=== PATIENT | male | born 1995 | race Caucasian/White ===

== ENCOUNTER 2021-08-22 00:03 | Inpatient (IN) | payer MEDICAID, SELFPAY ==
[2021-08-22 00:03] VITALS: BMI 25.9
[2021-08-22 00:35] VITALS: BP 143/89; PULSE 74; RESP 16; TEMP 36.7; O2SAT 98
[2021-08-22] MEDS: trazodone 50 mg Tablet PO ×2 (00:40→20:49)
[2021-08-22 06:00] VITALS: BP 101/61; PULSE 57; RESP 16; TEMP 36.3; O2SAT 99
--- NOTE | 2021-08-22 11:33 | NPU.GN ---
[facility] Topic: Roll The Dice General Mood of Group: Solomon did attend group. His hygiene was ok and he was social with others in group.
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
[2021-08-22 14:00] VITALS: BP 112/68; PULSE 67; RESP 20; TEMP 36.6; O2SAT 94
[2021-08-22] MEDS: quetiapine 100 mg Tablet PO ×2 (20:49→21:36)
[2021-08-22] MEDS: zonisamide 100 MG Capsule PO (20:49)
[2021-08-22 21:09] VITALS: BP 131/77; PULSE 66; RESP 20; TEMP 36.6; O2SAT 99
[2021-08-22] MEDS: zonisamide 100 MG Capsule 200 MG PO (21:46)
[2021-08-23 06:00] VITALS: BP 118/74; PULSE 70; RESP 18; TEMP 36; O2SAT 99
[2021-08-23] MEDS: OLANZapine 5 mg ODT PO ×2 (08:29→20:39)
[2021-08-23] MEDS: hyDROXYzine 25 mg Capsule 50 MG PO (08:29)
[2021-08-23] MEDS: fluoxetine 20 mg Capsule PO (08:30)
[2021-08-23] MEDS: risperiDONE 1 mg Tablet PO (08:30)
--- NOTE | 2021-08-23 11:40 | NPU.GN ---
[facility] Topic:Coping Mechanisms Activity General Mood of Group: Solomon did attend and participate in group today. Hygiene was ok and patient was pleasant and social with others in group.
--- NOTE | 2021-08-23 13:10 | P.NPUPN_ITS ---
Subjective NPU Subjective: He says that he is doing better. He is not having the flashbacks of seeing his friend killed in custodial. He did not have nightmares last night. He slept well with the Seroquel. He did not have a hangover this morning. He agrees with the plan to get him doing significantly better before he goes back to [facility]. If he is not successful with this program he will go to custodial for 7 years. Mental Status Exam MSE Comments: This is a 25-year old appropriate weight male who appears approximately his stated age and is in no acute distress. He is pleasant and cooperative with the evaluation. He is fairly well-groomed in hospital scrubs. psychomotor activity is normal, better than yesterday Speech is at a regular rate and rhythm, normal volume, good articulation, not pressured. Alert, oriented X3 Attention and concentration appear to be good Memory is intact Mood is depressed but better affect is mildly dysphoric Thought process is logical and goal-directed. Thought content: Denies auditory and visual hallucinations. No delusions or paranoia are noted. No current suicidal ideation, and no homicidal ideation. Fund of knowledge is appears to be average Insight and judgment appear to be fair. Impulse control is poor. Cognition: Patient Appearance: Appropriate Ability to Follow Directions: Good Patient Orientation (long list): Person, Name, Age and Birthday Comprehension Ability: No Impairment Hallucination Type: Auditory Delusion Description: Not Present Thought Process: Appropriate Affect: Affect Description: Anxious, Guarded and Labile Behavior: Patient Behavior: Cooperative and Evasive Speech Pattern: Appropriate and Clear Vitals/I&O/Wt Last Vital Signs Temp 96.8 F L 08/23/21 06:00 Pulse 70 08/23/21 06:00 Resp 18 08/23/21 06:00 BP 118/74 08/23/21 06:00 Pulse Ox 99 08/23/21 06:00 Weight last 48 hrs Weight 84.4 kg Weight 84.4 kg A&P Assessment and plan (1) Seizure disorder: Status: Acute (2) Polysubstance abuse: Status: Acute (3) Anxiety: Status: Acute (4) Depression: Status: Acute Plan This is a 25-year old male who has spent most of his time in juvenile and skilled nursing and present since he was 14 years old. Mostly for drug related offenses. He comes in now because of anxiety depression and suicidal ideation and a alcohol or drug treatment program ordered by the court. Plan: 1. Continue Zonegran for seizures. Start Prozac and Seroquel 2. Continue every 15 minute checks for safety. 3. Encourage individual, group and milieu therapies. 4. Encourage sober living treatment after discharge at the highest level of care to which he is willing to commit. 5. We will monitor for safety for himself in the community prior to discharge. Involuntary Hold Information 96 Hour Hold: 96 Hour Involuntary Admission: No Attestations NPU Medical Necessity Statement*: Inpatient hospitalization is medically necessary and the clinically appropriate intervention at this time. We will initiate medications and make changes as indicated. Coding Level of Care Code Acute Data Conversion Analyst for [facility] Diagnoses Seizure disorder G40.909 Polysubstance abuse F19.10 Anxiety F41.9 Depression F32.A
[2021-08-23 14:00] VITALS: BP 98/54; PULSE 55; RESP 17; TEMP 36.6; O2SAT 98
[2021-08-23] MEDS: zonisamide 100 MG Capsule 300 MG PO (20:39)
[2021-08-23] MEDS: quetiapine 100 mg Tablet PO (20:39)
[2021-08-23] MEDS: trazodone 50 mg Tablet PO (20:39)
[2021-08-23 21:09] VITALS: BP 128/82; PULSE 86; RESP 17; O2SAT 98
[2021-08-24 06:00] VITALS: BP 118/80; PULSE 87; RESP 18; TEMP 36.7; O2SAT 96
[2021-08-24] MEDS: risperiDONE 1 mg Tablet PO (09:57)
[2021-08-24] MEDS: fluoxetine 20 mg Capsule PO (09:57)
[2021-08-24] MEDS: nicotine 2 mg Gum BUCCAL (10:58)
--- NOTE | 2021-08-24 12:13 | W.PM.NPUPNS ---
Subjective NPU Subjective: Says that he is sleeping much better. He is not having nightmares. He also has not been having flashbacks of his friend being killed in [facility]. He said his anxiety during the day is still there but this seems to be decreasing. He feels like the medications are working well. He does not feel that he has had any side effects. Mental Status Exam MSE Comments: This is a 25-year old appropriate weight male who appears approximately his stated age and is in no acute distress. He is pleasant and cooperative with the evaluation. He is fairly well-groomed in hospital scrubs. psychomotor activity is normal, better than yesterday Speech is at a regular rate and rhythm, normal volume, good articulation, not pressured. Alert, oriented X3 Attention and concentration appear to be good Memory is intact Mood is depressed but better affect is mildly dysphoric Thought process is logical and goal-directed. Thought content: Denies auditory and visual hallucinations. No delusions or paranoia are noted. No current suicidal ideation, and no homicidal ideation. Fund of knowledge is appears to be average Insight and judgment appear to be fair. Impulse control is poor. Cognition: Patient Appearance: Appropriate Ability to Follow Directions: Good Patient Orientation (long list): Person, Name, Age and Birthday Comprehension Ability: No Impairment Hallucination Type: None Delusion Description: Not Present Thought Process: Appropriate Affect: Affect Description: Anxious, Lynn and Depressed Behavior: Patient Behavior: Appropriate Speech Pattern: Appropriate and Clear Vitals/I&O/Wt Last Vital Signs Temp 98.0 F 08/24/21 06:00 Pulse 87 08/24/21 06:00 Resp 18 08/24/21 06:00 BP 118/80 08/24/21 06:00 Pulse Ox 96 08/24/21 06:00 A&P Assessment and plan (1) Seizure disorder: Status: Acute (2) Polysubstance abuse: Status: Acute (3) Anxiety: Status: Acute (4) Depression: Status: Acute Plan This is a 25-year old male who has spent most of his time in juvenile and custodial and present since he was 14 years old. Mostly for drug related offenses. He comes in now because of anxiety depression and suicidal ideation and a alcohol or drug treatment program ordered by the court. Plan: 1. Continue Zonegran for seizures. Start Prozac and Seroquel. will increase Prozac gradually. 2. Continue every 15 minute checks for safety. 3. Encourage individual, group and milieu therapies. 4. Encourage sober living treatment after discharge at the highest level of care to which he is willing to commit. 5. We will monitor for safety for himself in the community prior to discharge. Involuntary Hold Information 96 Hour Hold: 96 Hour Involuntary Admission: No Attestations NPU Medical Necessity Statement*: Inpatient hospitalization is medically necessary and the clinically appropriate intervention at this time. We will initiate medications and make changes as indicated. Coding Level of Care Code Acute Residence Leasing Agent for [facility] Fwd Diagnoses Seizure disorder G40.909 Polysubstance abuse F19.10 Anxiety F41.9 Depression F32.A
[2021-08-24 14:00] VITALS: BP 118/80; PULSE 87; RESP 18; TEMP 36.7; O2SAT 96
[2021-08-24] MEDS: nicotine 4 mg lozenge MUCOUS MEM ×2 (17:31→20:31)
[2021-08-24] MEDS: zonisamide 100 MG Capsule 300 MG PO (20:31)
[2021-08-24] MEDS: quetiapine 100 mg Tablet PO (20:31)
[2021-08-24] MEDS: trazodone 50 mg Tablet PO (20:31)
[2021-08-24 22:00] VITALS: BP 103/79; PULSE 87; RESP 18; TEMP 36.6; O2SAT 98
[2021-08-25 06:00] VITALS: BP 109/58; PULSE 55; RESP 16; O2SAT 98
[2021-08-25] MEDS: fluoxetine 20 mg Capsule PO (08:51)
[2021-08-25] MEDS: risperiDONE 1 mg Tablet PO (08:51)
[2021-08-25] MEDS: nicotine 4 mg lozenge MUCOUS MEM ×4 (08:52→18:37)
--- NOTE | 2021-08-25 11:05 | W.PM.NPUPNS ---
Subjective NPU Subjective: He says that he is doing much better. He talked on the phone with his mother and she can also tell that he is doing much better. He is sleeping well. He is not having any flashbacks during the day. He is not having nightmares at night. He is much more relaxed and not getting irritated like normal. He wants to be discharged back to [facility] on Saturday. He feels like he is in good shape to continue to program and succeed. Mental Status Exam MSE Comments: This is a 25-year old appropriate weight male who appears approximately his stated age and is in no acute distress. He is pleasant and cooperative with the evaluation. He is fairly well-groomed in hospital scrubs. psychomotor activity is normal, better than yesterday Speech is at a regular rate and rhythm, normal volume, good articulation, not pressured. Alert, oriented X3 Attention and concentration appear to be good Memory is intact Mood is depressed but better affect is mildly dysphoric Thought process is logical and goal-directed. Thought content: Denies auditory and visual hallucinations. No delusions or paranoia are noted. No current suicidal ideation, and no homicidal ideation. Fund of knowledge is appears to be average Insight and judgment appear to be fair. Impulse control is poor. Cognition: Patient Appearance: Appropriate Ability to Follow Directions: Good Patient Orientation (long list): Person, Name, Age and Birthday Comprehension Ability: No Impairment Hallucination Type: None Delusion Description: Not Present Thought Process: Appropriate Affect: Affect Description: Appropriate Behavior: Patient Behavior: Appropriate Speech Pattern: Appropriate Vitals/I&O/Wt Last Vital Signs Temp 97.8 F 08/24/21 22:00 Pulse 55 L 08/25/21 06:00 Resp 16 08/25/21 06:00 BP 109/58 08/25/21 06:00 Pulse Ox 98 08/25/21 06:00 A&P Assessment and plan (1) Seizure disorder: Status: Acute (2) Polysubstance abuse: Status: Acute (3) Anxiety: Status: Acute (4) Depression: Status: Acute Plan This is a 25-year old male who has spent most of his time in juvenile and [facility] and present since he was 14 years old. Mostly for drug related offenses. He comes in now because of anxiety depression and suicidal ideation and a alcohol or drug treatment program ordered by the court. Plan: 1. Continue Zonegran for seizures. Start Prozac and Seroquel. will increase Prozac gradually. 2. Continue every 15 minute checks for safety. 3. Encourage individual, group and milieu therapies. 4. Encourage sober living treatment after discharge at the highest level of care to which he is willing to commit. 5. We will monitor for safety for himself in the community prior to discharge. Involuntary Hold Information 96 Hour Hold: 96 Hour Involuntary Admission: No Attestations NPU Medical Necessity Statement*: Inpatient hospitalization is medically necessary and the clinically appropriate intervention at this time. We will initiate medications and make changes as indicated. Coding Level of Care Code Acute Parachute Line Tier for [facility] Diagnoses Seizure disorder G40.909 Polysubstance abuse F19.10 Anxiety F41.9 Depression F32.A
[2021-08-25 14:00] VITALS: BP 129/85; PULSE 96; RESP 19; TEMP 36.6; O2SAT 97
[2021-08-25] MEDS: zonisamide 100 MG Capsule 300 MG PO (20:16)
[2021-08-25] MEDS: trazodone 50 mg Tablet PO (20:16)
[2021-08-25] MEDS: quetiapine 100 mg Tablet PO (20:16)
[2021-08-25 20:20] VITALS: BP 133/78; PULSE 72; RESP 18; TEMP 36.6; O2SAT 100
[2021-08-26] MEDS: hyDROXYzine 25 mg Capsule 50 MG PO (02:35)
[2021-08-26 06:00] VITALS: BP 131/73; PULSE 71; RESP 17; TEMP 36.4; O2SAT 100
[2021-08-26] MEDS: nicotine 4 mg lozenge MUCOUS MEM ×6 (06:19→21:28)
[2021-08-26] MEDS: risperiDONE 1 mg Tablet PO (08:26)
[2021-08-26] MEDS: fluoxetine 20 mg Capsule PO (08:26)
--- NOTE | 2021-08-26 10:06 | P.NPUPN_ITS ---
Subjective NPU Subjective: He continues to feel that he is doing very well. He slept well again last night. He still has not had flashbacks for the last 2 days. His energy is good. He is more relaxed. He is excited to get back to his treatment program. Mental Status Exam MSE Comments: This is a 25-year old appropriate weight male who appears approximately his stated age and is in no acute distress. He is pl easant and cooperative with the evaluation. He is fairly well-groomed in hospital scrubs. psychomotor activity is normal, better than yesterday Speech is at a regular rate and rhythm, normal volume, good articulation, not pressured. Alert, oriented X3 Attention and concentration appear to be good Memory is intact Mood is depressed but better affect is mildly dysphoric Thought process is logical and goal-directed. Thought content: Denies auditory and visual hallucinations. No delusions or paranoia are noted. No current suicidal ideation, and no homicidal ideation. Fund of knowledge is appears to be average Insight and judgment appear to be fair. Impulse control is poor. Cognition: Patient Appearance: Appropriate Ability to Follow Directions: Good Patient Orientation (long list): Person, Name, Age and Birthday Comprehension Ability: No Impairment Hallucination Type: None Delusion Description: Not Present Thought Process: Appropriate Affect: Affect Description: Appropriate and Calm Behavior: Patient Behavior: Appropriate and Cooperative Speech Pattern: Appropriate and Clear Vitals/I&O/Wt Last Vital Signs Temp 97.5 F L 08/26/21 06:00 Pulse 71 08/26/21 06:00 Resp 17 08/26/21 06:00 BP 131/73 08/26/21 06:00 Pulse Ox 100 08/26/21 06:00 A&P Assessment and plan (1) Seizure disorder: Status: Acute (2) Polysubstance abuse: Status: Acute (3) Anxiety: Status: Acute (4) Depression: Status: Acute Plan This is a 25-year old male who has spent most of his time in juvenile and halfway and nursing home since he was 14 years old. Mostly for drug related offenses. He comes in now because of anxiety depression and suicidal ideation and a alcohol or drug treatment program ordered by the court. Plan: 1. Continue Zonegran for seizures. Start Prozac and Seroquel. will increase Prozac gradually. 2. Continue every 15 minute checks for safety. 3. Encourage individual, group and milieu therapies. 4. Encourage sober living treatment after discharge at the highest level of care to which he is willing to commit. 5. We will monitor for safety for himself in the community prior to discharge. Involuntary Hold Information 96 Hour Hold: 96 Hour Involuntary Admission: No Attestations NPU Medical Necessity Statement*: Inpatient hospitalization is medically necessary and the clinically appropriate intervention at this time. We will initiate medications and make changes as indicated. Coding Level of Care Code Acute Phlebotomy Services Representative for [facility] Fwd Diagnoses Seizure disorder G40.909 Polysubstance abuse F19.10 Anxiety F41.9 Depression F32.A
[2021-08-26 14:00] VITALS: BP 125/79; PULSE 95; RESP 19; TEMP 36.8; O2SAT 99
[2021-08-26 20:27] VITALS: BP 139/84; PULSE 80; RESP 18; TEMP 36.4; O2SAT 99
[2021-08-26] MEDS: zonisamide 100 MG Capsule 300 MG PO (21:12)
[2021-08-26] MEDS: trazodone 50 mg Tablet PO (21:12)
[2021-08-26] MEDS: quetiapine 100 mg Tablet PO (21:12)
[2021-08-27 06:00] VITALS: BP 126/73; PULSE 86; RESP 16; TEMP 36.5; O2SAT 99
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
[2021-08-27] MEDS: risperiDONE 1 mg Tablet PO (08:30)
[2021-08-27] MEDS: fluoxetine 20 mg Capsule PO (08:30)
[2021-08-27] MEDS: nicotine 4 mg lozenge MUCOUS MEM (08:32)
[2021-08-27 09:13] VITALS: BP 126/73; PULSE 86; RESP 16; TEMP 36.5; O2SAT 99
== END 2021-08-27 09:22 | disposition home or self-care (01) | DRG 881 ==
PROVIDERS: Admitting Provider Psychiatry & Neurology Psychiatry; Visit Provider Psychiatry & Neurology Psychiatry
DX: F32.A Depression, unspecified (principal); R45.851 Suicidal ideations; F41.9 Anxiety disorder, unspecified; F15.11 Other stimulant abuse, in remission; F14.11 Cocaine abuse, in remission; F11.11 Opioid abuse, in remission; Z81.3 Family history of other psychoactive substance abuse and dependence; F43.10 Post-traumatic stress disorder, unspecified; G40.909 Epilepsy, unspecified, not intractable, without status epilepticus
CPT/HCPCS: 97150; 97165